=== PATIENT | female | born 1985 | race Caucasian/White ===

== ENCOUNTER 2017-03-20 11:19 | Emergency (ER) | payer MEDICAID, OTHER ==
[~2017-03-20] VITALS: Ht 160 cm; Wt 75.5 kg
[2017-03-20 11:25] VITALS: Ht 160 cm; Wt 75.5 kg
--- NOTE | 2017-03-20 12:49 | ERD ---
ER Documentation Chief Complaint Date/Time DATE: 03/20/17 TIME: 12:44 Chief Complaint PELVIC PAIN X 3 DAYS, 17 WEEKS HPI This is a 31-year-old female presenting to emergency department with pelvic pain and dysuria for the past 3 days. Patient is currently 17 weeks with last menstrual period 11/25/2016. Patient is a A2. Patient rates pelvic cramping 7/10 to suprapubic region. Denies vaginal bleeding or vaginal discharge. Patient has burning with urination. No hematuria. No urinary frequency or urinary urgency. [facility] and was told to come to the ER for evaluation. ROS All systems reviewed and are negative except as per history of present illness. Medications Home Meds Active Scripts Acetaminophen* (Tylenol*) 325 Mg Tablet, 1 TAB PO Q6 Y for PAIN AND OR ELEVATED TEMP, #20 TAB Prov:JOCELIN HENDRICKSON NP 03/20/17 Nitrofurantoin Monohyd Macrocr* (Macrobid*) 100 Mg Capsr, 100 MG PO BID for 5 Days, CAP Prov:JOCELIN HENDRICKSON NP 03/20/17 Allergies Allergies: Coded Allergies: No Known Allergy (Unverified , 03/20/17) Physical Exam Vitals Vital Signs Date Time Temp Pulse Resp B/P Pulse Ox O2 Delivery O2 Flow Rate FiO2 03/20/17 11:25 98.5 96 18 133/84 99 Physical Exam Const: No acute distress, alert Head: Atraumatic Eyes: Normal Conjunctiva ENT: Normal External Ears, Nose and Mouth. Neck: Full range of motion..~ No meningismus. Resp: Clear to auscultation bilaterally, no wheezing, rhonchi or crackles. Cardio: Regular rate and rhythm, no murmurs Abd: Soft, non distended. Normal bowel sounds, Suprapubic tenderness Skin: No petechiae or rashes Back: No midline or flank tenderness Ext: No cyanosis, or edema Neur: Awake and alert Psych: Normal Mood and Affect Result Diagram: 03/20/17 1245 Results 24 hrs Laboratory Tests Test 03/20/17 12:44 03/20/17 12:45 Urine Color YELLOW Urine Clarity SLIGHTLY CLOUDY Urine pH 5.0 Urine Specific [place] 1.014 Urine Ketones NEGATIVEmg/dL Urine Nitrite NEGATIVEmg/dL Urine Bilirubin NEGATIVEmg/dL Urine Urobilinogen NEGATIVEmg/dL Urine Leukocyte Esterase 1+Mable/ul Urine Microscopic RBC 4/HPF Urine Microscopic WBC 4/HPF Urine Squamous Epithelial Cells FEW/HPF Urine Bacteria FEW/HPF Urine Hemoglobin NEGATIVEmg/dL Urine Glucose NEGATIVEmg/dL Urine Total Protein NEGATIVEmg/dl White Blood Count 10.610^3/ul Red Blood Count 4.1310^6/ul Hemoglobin 13.4g/dl Hematocrit 37.7% Mean Corpuscular Volume 91.3fl Mean Corpuscular Hemoglobin 32.4pg Mean Corpuscular Hemoglobin Concent 35.5g/dl Red Cell Distribution Width 13.1% Platelet Count 97299^3/UL Mean Platelet Volume 9.8fl Neutrophils % 74.1% Lymphocytes % 17.3% Monocytes % 6.9% Eosinophils % 0.7% Basophils % 0.6% Nucleated Red Blood Cells % 0.0/100WBC Neutrophils # 7.910^3/ul Lymphocytes # 1.810^3/ul Monocytes # 0.710^3/ul Eosinophils # 0.110^3/ul Basophils # 0.110^3/ul Nucleated Red Blood Cells # 0.010^3/ul Beta HCG, Quantitative 12354.0mIU/ml Procedures/[place] [id number] Radiology Main Line: [phone] DIAGNOSTIC IMAGING REPORT Patient: TANA QUINN : 1985 Age: 31 Sex: F MR #: [id number] DOS: 03/20/17 1220 Ordering MD: JOCELIN HENDRICKSON NP Location: [facility] Room/Bed: PROCEDURE: US OB. CLINICAL INDICATION: Size and dates , pelvic pain TECHNIQUE: Multiple sonographic images of the pelvis and gravid uterus were obtained. The images were reviewed on a PACS workstation. COMPARISON: No prior studies are available for comparison. FINDINGS: There is a single viable intrauterine gestation. Cardiac activity is present with 148 beats per minute. There is a vertex presentation. The placenta is anterior. There is no evidence for an abruption or placenta previa. There is a normal amount of amniotic fluid with a MVP = 4.1 cm. Measurements were made in order to determine age. The results are as follows: BPD = 3.7 cm HC = 13.4 cm AC = 12 cm FL = 2.1 cm Estimated gestational age of approximately 17 weeks and 0 days based on ultrasound measurements. Clinical age: 16 weeks and 6 days. The estimated date of delivery is 08/28/2017, based on ultrasound measurements. The EFW = 176 g, 52%, based on LMP age. The ovaries are not seen. There are no adnexal masses. RPTAT: AA IMPRESSION: Single viable intrauterine gestation of approximately 17 weeks and 0 days based on ultrasound measurements. MDM: 31 year old female presents to ER with pelvic pain and dysuria while . Patient's LMP was 11/25/2016. CBC shows no white blood cell count. Beta-hCG is 35,556.0. Urine shows 1+ leukocyte Estrace otherwise negative. Type and Rh factor is O+ and no indication for RhoGam. OB ultrasound reviewed by radiologist as single viable intrauterine gestation of approximately 17 weeks and 0 days. Patient given Tylenol while in the ED. Remained stable. Vital signs are stable. Patient remains afebrile. Differential diagnosis includes but not limited to ectopic , threatened , missed , normal , subchorionic hemorrhage , ruptured ovarian cyst, UTI or pyelonephritis. Patient is appropriate for outpatient management will be given prescription for Macrobid and Tylenol. Instructed patient to follow-up with [facility] TECHNICIAN or PCP in the next 2-3 days for reassessment. Return to ED sooner for any high fever, chest pain, difficulty breathing, shortness breath, wheezing, vomiting, diarrhea , abdominal pain or any new or worsening symptoms. Patient verbalizes understanding. All questions answered at discharge. Departure Diagnosis: Primary Impression: Pelvic pain complicating Condition: Stable JOCELIN HENDRICKSON NP Mar 20, 2017 12:49
[2017-03-20 12:57] LABS: BASOPHIL # 0.1 10^3/ul (0.0-0.1); BASOPHILS % 0.6 % (0.0-2.0); EOSINOPHILS # 0.1 10^3/ul (0.0-0.5); EOSINOPHILS % 0.7 % (0.0-7.0); HEMATOCRIT 37.7 % (37.0-47.0); HEMOGLOBIN 13.4 g/dl (12.0-16.0); LYMPHOCYTES # 1.8 10^3/ul (0.8-2.9); LYMPHOCYTES % 17.3 % (15.0-51.0); MEAN CORPUSCULAR HEMOGLOBIN 32.4 pg (29.0-33.0); MEAN CORPUSCULAR HGB CONC 35.5 g/dl (32.0-37.0); MEAN CORPUSCULAR VOLUME 91.3 fl (82.0-101.0); MEAN PLATELET VOLUME 9.8 fl (7.4-10.4); MONOCYTE # 0.7 10^3/ul (0.3-0.9); MONOCYTES % 6.9 % (0.0-11.0); NEUTROPHIL # 7.9 10^3/ul (1.6-7.5); NEUTROPHILS % 74.1 % (39.0-77.0); PLATELET COUNT 335 10^3/UL (140-415); RED BLOOD COUNT 4.13 10^6/ul (4.20-5.40); RED CELL DISTRIBUTION WIDTH 13.1 % (11.5-14.5); WHITE BLOOD COUNT 10.6 10^3/ul (4.8-10.8)
[2017-03-20 13:06] LABS: ADD UMIC YES; UR ASCORBIC ACID NEGATIVE (NEGATIVE); UR BACTERIA FEW /HPF (NONE SEEN); UR BILIRUBIN (Dip) NEGATIVE (NEGATIVE); UR BLOOD (Dip) NEGATIVE (NEGATIVE); UR CLARITY SLIGHTLY CLOUDY (CLEAR); UR COLOR YELLOW (YELLOW); UR GLUCOSE (Dip) NEGATIVE (NEGATIVE); UR KETONES (Dip) NEGATIVE (NEGATIVE); UR LEUKOCYTE ESTERASE (Dip) 1+ Leu/ul (NEGATIVE); UR NITRITE (Dip) NEGATIVE (NEGATIVE); UR RBC 4 /HPF (0-5); UR SPECIFIC GRAVITY (Dip) 1.014 (1.003-1.030); UR SQUAMOUS EPITHELIAL CELL FEW /HPF (FEW); UR TOTAL PROTEIN (Dip) NEGATIVE (NEGATIVE); UR UROBILINOGEN (Dip) NEGATIVE (NEGATIVE)
--- NOTE | 2017-03-20 13:12 | RADRPT ---
PROCEDURE: US OB. CLINICAL INDICATION: Size and dates , pelvic pain TECHNIQUE: Multiple sonographic images of the pelvis and gravid uterus were obtained. The images were reviewed on a PACS workstation. COMPARISON: No prior studies are available for comparison. FINDINGS: There is a single viable intrauterine gestation. Cardiac activity is present with 148 beats per min [place]. There is a vertex presentation. The placenta is anterior. There is no evidence for an abruption or placenta previa. There is a normal amount of amniotic fluid with a MVP = 4.1 cm. Measurements were made in order to determine age. The results are as follows: BPD =3.7 cm HC =13.4 cm AC =12 cm FL =2.1 cm Estimated gestational age of approximately 17 weeks and 0 days based on ultrasound measurements. Clinical age: 16 weeks and 6 days. The estimated date of delivery is 08/28/2017, based on ultrasound measurements. The EFW = 176 g, 52%, based on LMP age. The ovaries are not seen. There are no adnexal masses. RPTAT: AA IMPRESSION: Single viable intrauterine gestation of approximately 17 weeks and 0 days based on ultrasound measu rements. .Murali Stapleton MD, Date Time Electronically viewed and signed by .Murali Stapleton MD, MD on 03/20/2017 13:12 .S/
[2017-03-20] MEDS ORDERED: NITR-58 PO (14:49)
[2017-03-20] MEDS ORDERED: ACET325T33 PO (14:49)
[2017-03-20 16:13] VITALS: BP 132/82; PULSE 88; RESP 18; TEMP 98.4
== END 2017-03-20 16:20 | disposition home or self-care (01) ==
LOC: FTE 11:19
DX: O26.892 Other specified pregnancy related conditions, second trimester (principal); R10.2 Pelvic and perineal pain
CPT/HCPCS: 76805; 81001; 84702; 85025; 86900; 86901; Z7502

== ENCOUNTER 2017-08-08 07:11 | Emergency (ER) | payer MEDICAID, OTHER ==
[~2017-08-08] VITALS: Wt 84.7 kg
[~2017-08-08 07:11] MED LIST: ACET325T33 PO; NITR-58 PO
[2017-08-08] MEDS ORDERED: ACETAMINOPHEN 325 MG TAB PO ONE (08:00)
[2017-08-08 08:03] VITALS: BP 120/81; PULSE 91; RESP 17; TEMP 98.2
--- NOTE | 2017-08-08 09:16 | ERD ---
ER Documentation Chief Complaint Chief Complaint Rectal and nose bleed x this am 37 weeks HPI Patient is a 31-year-old female with no medical problems who presents with fever and sore throat. She said that she had a subjective fever last night as well as a sore throat. She had a nosebleed this morning and then she went to the bathroom and had a bowel movement and when she wiped there was blood on the toilet paper. She is 37 weeks . She is concerned for possible throat infection. She denies abdominal pain or vaginal bleeding. She upon review of old medical records has had one previous visit in February 2017. She says Dr. Dinh is her primary doctor Dr. Echeverria is her OB doctor. ROS All systems reviewed and are negative except as per history of present illness. Medications Home Meds Active Scripts Acetaminophen* (Tylenol*) 325 Mg Tablet, 1 TAB PO Q6 Y for PAIN AND OR ELEVATED TEMP, #20 TAB Prov:JOCELIN HENDRICKSON NP 03/20/17 Nitrofurantoin Monohyd Macrocr* (Macrobid*) 100 Mg Capsr, 100 MG PO BID for 5 Days, CAP Prov:JOCELIN HENDRICKSON NP 03/20/17 Allergies Allergies: Coded Allergies: No Known Allergy (Unverified , 03/20/17) PMhx/Soc Medical and Surgical Hx: pt denies Medical Hx, pt denies Surgical Hx FmHx Family History: No diabetes Physical Exam Vitals Vital Signs Date Time Temp Pulse Resp B/P Pulse Ox O2 Delivery O2 Flow Rate FiO2 08/08/17 08:03 98.2 91 17 120/81 97 Room Air 08/08/17 07:13 98.7 93 18 130/92 98 Physical Exam Const: No acute distress Head: Atraumatic Eyes: Normal Conjunctiva ENT: Normal External Ears, Nose and Mouth. No oral pharyngeal swelling or infection seen Neck: Full range of motion..~ No meningismus. No stridor over the neck Resp: Clear to auscultation bilaterally Cardio: Regular rate and rhythm, no murmurs Abd: Soft, non tender, non distended. Normal bowel sounds Skin: No petechiae or rashes Back: No midline or flank tenderness Ext: No cyanosis, or edema Neur: Awake and alert Rectal: No hemorrhoids, no active bleeding seen Results 24 hrs Current Medications Medications (Trade) Dose Ordered Sig/Jenniffer Route PRN Reason Start Time Stop Time Status Last Admin Dose Admin Acetaminophen (Tylenol Tab) 650 mg ONCE ONCE PO 08/08/17 08:00 08/08/17 08:01 DC 08/08/17 07:52 Departure Diagnosis: Primary Impression: URI (upper respiratory infection) URI type: unspecified URI Qualified Code: J06.9 - Upper respiratory tract infection, unspecified type Additional Impressions: Epistaxis Rectal hemorrhage Condition: Fair Patient Instructions: Preventing Common Respiratory Infections, Epistaxis ( Adult), Rectal Bleed, Stable Referrals: KASIE ECHEVERRIA MD Additional Instructions: You will be sent directly to OB Triage for further monitoring. DENNIS LAWTON MD Aug 08, 2017 09:16
== END 2017-08-08 08:05 | disposition home or self-care (01) ==
LOC: E/R 07:11
DX: J06.9 Acute upper respiratory infection, unspecified (principal); K62.5 Hemorrhage of anus and rectum
CPT/HCPCS: Z7502; Z7610; 99282